=== PATIENT | male | born 1980 | race American Indian/Alaskan Native ===

== ENCOUNTER 2017-07-31 09:27 | Emergency (ER) | payer OTHER ==
[2017-07-31 10:04] VITALS: BP 182/102
== END 2017-07-31 10:02 | disposition left against medical advice (07) ==
LOC: ED 09:27
DX: M25.519 Pain in unspecified shoulder (principal); Z53.21 Procedure and treatment not carried out due to patient leaving prior to being seen by health care provider

== ENCOUNTER 2017-10-08 13:29 | Emergency (ER) | payer OTHER ==
[2017-10-08] MEDS ORDERED: MORPHINE IV ONE (13:57)
[2017-10-08] MEDS ORDERED: NACL 0.9% 1000 ML 1,000 ML IV ONE (13:57)
[2017-10-08] MEDS ORDERED: BOOSTRIX IM ONE (13:59)
--- NOTE | 2017-10-08 14:03 | Emergency Department Report ---
HPI - General Chief Complaint: Extremity Injury, Upper Time Seen by Provider: 10/08/17 13:57 - HPI HPI: 37-year-old -Serbian male presents to the emergency department with a complaint of a laceration across the distal portion of his left index finger that occurred just prior to presentation when a trailer came down on his finger accidentally. He is unsure of the last time he had a tetanus vaccination. He is having pain, a laceration, and the finger appears to be partially amputated. He is right-hand dominant. He denies any other past medical history. He did not take anything for his symptoms prior to presentation. ED Past Medical Hx - Past Medical History Hx Hypertension: Yes - Social History Smoking Status: Former Smoker Substance Use Type: Alcohol, Prescribed - Medications Home Medications: Home Medications Medication Instructions Recorded Confirmed Last Taken Type Cephalexin [Keflex] 1,000 mg PO Q12HR #20 cap 10/08/17 Unknown Rx oxyCODONE /ACETAMINOPHEN [Percocet 1 tab PO Q6HR PRN #10 tablet 10/08/17 Unknown Rx 5/325] ED Review of Systems ROS: Stated complaint: CUT FINGER OFF Other details as noted in HPI Comment: All other systems reviewed and negative Constitutional: denies: chills, fever Eyes: denies: eye pain, eye discharge, vision change ENT: denies: ear pain, throat pain Respiratory: denies: cough, shortness of breath, wheezing Cardiovascular: denies: chest pain, palpitations Gastrointestinal: denies: abdominal pain, nausea, diarrhea Genitourinary: denies: urgency, dysuria Musculoskeletal: arthralgia. denies: back pain Skin: other (laceration). denies: rash, lesions Neurological: denies: headache, weakness, paresthesias Physical Exam - Physical Exam Vital Signs: Vital Signs 10/08/17 13:44 Temperature 98.2 F Pulse Rate 73 Respiratory 18 Rate Blood Pressure 120/59 O2 Sat by Pulse 98 Oximetry Physical Exam: GENERAL: The patient is well-developed well-nourished. HENT: Normocephalic. Atraumatic. Patient has moist mucous membranes. EYES: Extraocular motions are intact. Pupils equal reactive to light bilaterally. NECK: Supple. Trachea is midline. CHEST/LUNGS: Clear to auscultation. There is no respiratory distress noted. HEART/CARDIOVASCULAR: Regular. There is no tachycardia. There is no murmur. ABDOMEN: Abdomen is soft, nontender. Patient has normal bowel sounds. There is no abdominal distention. SKIN: There is a linear laceration to the left index finger to the middle phalanx that starts on the dorsal side and wraps around to the ulnar side of the finger at about the level of the DIP joint. NEURO: The patient is awake, alert, and oriented. The patient is cooperative. The patient has no focal neurologic deficits. The patient has normal speech. MUSCULOSKELETAL: There is some tenderness to palpation to the left index finger with the patient has a laceration, fracture and deformity. The distal half of the left index finger is angulated and deviated to the right, radial side. Radial pulse +2 over 4 to the left wrist. There is cap Refill less than 3 seconds to the affected left index finger. ED Course Vital Signs 10/08/17 13:44 Temperature 98.2 F Pulse Rate 73 Respiratory 18 Rate Blood Pressure 120/59 O2 Sat by Pulse 98 Oximetry - Consultations Consultation #1: I appear to see spoken to Dr. Giron, orthopedic surgeon, who took a look at the x-ray and a picture of the finger and recommended suturing the finger together loosely, placing it in a splint, and outpatient follow-up in the next few days. 10/08/17 16:11 I called and spoke with the [facility] emergency line and spoke with a Dr. López. Dr. López was able to speak with a orthopedic hand surgeon through [facility], Dr. Young, who agreed with the plan for simple laceration repair, splinting, and has agreed to see the patient in the one at office on Sunday at 8 AM. - Laceration /Wound Repair Left Finger Wound Location: upper extremity (left index finger) Wound Length (cm): 3 Wound's Depth, Shape: into muscle, irregular Irrigated w/ Saline (ccs): 500 Betadine Prep?: Yes Anesthesia: 1% Lidocaine Volume Anesthetic (ccs): 8 (digital block) Wound Repaired With: sutures Suture Size/Type: 4:0, proline Number of Sutures: 6 Layer Closure?: No Sterile Dressing Applied?: Yes - Nerve Block Consent Obtained: verbal consent Time Out Performed: Yes Local Anesthetic Used: Lidocaine 1% Amount of anesthesia used: 8 Side: left Nerve Blocks: digital Procedure Successful: Yes Complications: none Patient Tolerated Procedure: well ED Medical Decision Making - Radiology Data Radiology results: image reviewed interpreted by me: X-ray of the left index finger shows a fracture through the middle phalanx with some radial side angulation and some displacement. - Medical Decision Making The patient came in with a laceration and a fracture to the left index finger after a trailer came down on his finger. It is an open fracture. A digital block was done and once there was successful anesthesia the area was cleaned with normal saline. I spoke with Dr. Giron, [facility] orthopedist, who recommended suturing the finger back together with a medium approximation, placing the finger in a splint, and having outpatient follow-up in the next few days. I also spoke with the [facility] emergency and spoke with a physician who spoke with a [facility] orthopedist who agreed with that plan and has arranged for outpatient follow-up for this [facility] patient. The patient was given a dose of antibiotics here, as well as a tetanus booster. He was discharged home with antibiotics and pain medication and this outpatient orthopedic referral. After the digital block and laceration repair, the patient was still neurovascularly intact. - Differential Diagnosis laceration, fracture, abrasion, contusion Critical Care Time: No Critical care attestation.: If time is entered above; I have spent that time in minutes in the direct care of this critically ill patient, excluding procedure time. ED Disposition Clinical Impression: Laceration of left index finger Qualifiers: Encounter type: initial encounter Damage to nail status: without damage Foreign body presence: unspecified Qualified Code(s): S61.211A - Laceration without foreign body of left index finger without damage to nail, initial encounter Open fracture of phalanx of index finger Qualifiers: Encounter type: initial encounter Phalanx: middle Fracture alignment: displaced Laterality: left Qualified Code(s): S62.621B - Displaced fracture of middle phalanx of left index finger, initial encounter for open fracture Disposition: DC-01 TO HOME OR SELFCARE Is pt being admited?: No Condition: Stable Instructions: Finger Fracture (ED), Finger Laceration (ED) Additional Instructions: You have an appointment on Sunday morning at 8 AM to follow up with an orthopedic hand surgeon, Dr Young. Dr Young [id number] [place] [address] Take the antibiotics as prescribed. Return to the emergency Department with any worsening of her symptoms, signs of infection, or with any acute distress. You have been prescribed a medication that is sedating and therefore should not be taken prior to driving, working, and responsible for children and in no way should be mixed with alcohol of any quantity. Prescriptions: Cephalexin [Keflex] 1,000 mg PO Q12HR #20 cap oxyCODONE /ACETAMINOPHEN [Percocet 5/325] 1 tab PO Q6HR PRN #10 tablet PRN Reason: Pain Referrals: Dr Hannah [Other] - 10/10/17 8:00 am
--- NOTE | 2017-10-08 14:24 | XRay Report ---
LEFT FINGERS, 3 VIEWS History: Index finger injury. Findings: There is a complex soft tissue laceration and fracture through the middle phalanx of the left index finger. Displacement measures up to 5 mm. Near amputation is suggested. The remaining bony structures and joint spaces are within normal limits. No radiopaque foreign bodies. Impression: Fracture of middle phalanx, index finger.
[2017-10-08] MEDS ORDERED: XYLOCAINE 2% INFILTRATI ONE (14:32)
[2017-10-08] MEDS ORDERED: ceFAZolin 1 GM in NACL 0.9% 20 ML IV SCH (15:00)
[2017-10-08] MEDS ORDERED: XYLOCAINE 1% 20 mL ONE (15:01)
[2017-10-08] MEDS ORDERED: NACL 0.9% 500 ML IR ONE (15:02)
[2017-10-08] MEDS ORDERED: KEFLEX ONE (16:23)
[2017-10-08] MEDS ORDERED: KEFLEX PO ONE (16:24)
[2017-10-08] MEDS ORDERED: HYDROGEN PEROXIDE ONE (16:31)
[2017-10-08 16:40] VITALS: BP 117/84
[2017-10-08] MEDS ORDERED: TRIPLE ANTIBIOTIC TP ONE (16:45)
== END 2017-10-08 17:00 | disposition home or self-care (01) ==
LOC: ED 13:29
DX: S62.621B Displaced fracture of middle phalanx of left index finger, initial encounter for open fracture (principal); I10 Essential (primary) hypertension; Z91.041 Radiographic dye allergy status; W22.8XXA Striking against or struck by other objects, initial encounter; Y93.89 Activity, other specified; Y99.8 Other external cause status; Y92.89 Other specified places as the place of occurrence of the external cause
CPT/HCPCS: 29130; 73140; 90471; 90715; 96374; 99283; J0690; J2270; J7030; A6250